=== PATIENT | male | born 1990 | race Two or more races ===

== ENCOUNTER 2022-10-25 23:08 | Emergency (ER) | payer MEDICAID ==
[~2022-10-25] VITALS: Ht 182.9 cm; Wt 120.0 kg
[2022-10-25 23:08] VITALS: BP 141/92
[2022-10-26] MEDS ORDERED: IBUP800T27 PO (02:27)
== END 2022-10-26 02:42 | disposition home or self-care (01) ==
LOC: ER 23:08
DX: S83.91XA Sprain of unspecified site of right knee, initial encounter (principal); S80.211A Abrasion, right knee, initial encounter; Z88.1 Allergy status to other antibiotic agents; W18.00XA Striking against unspecified object with subsequent fall, initial encounter; Y93.01 Activity, walking, marching and hiking; Y92.89 Other specified places as the place of occurrence of the external cause; Y99.8 Other external cause status
CPT/HCPCS: 29505; 73564